=== PATIENT | male | born 1950 | race Caucasian/White ===

== ENCOUNTER 2017-04-13 13:14 | Emergency (ER) | payer MEDICARE ==
[~2017-04-13] VITALS: Ht 177.8 cm; Wt 78.0 kg
[2017-04-13 13:34] VITALS: BP 140/92; PULSE 99; RESP 24; TEMP 98.3; O2SAT 98
[2017-04-13] MEDS ORDERED: LISI10TA3 PO (13:34)
[2017-04-13] MEDS ORDERED: ASPIRIN 81 MG CHEW TAB ONE (13:57)
[2017-04-13 14:01] LABS: AUTOMATED NEUTROPHIL # 5.1 TH/MM3 (1.8-7.7); BASOPHIL # 0.1 TH/MM3 (0-0.2); BASOPHIL % 0.7 % (0.0-2.0); EOSINOPHIL # 0.8 TH/MM3 (0-0.4); EOSINOPHIL % 8.4 % (0.0-4.0); HEMATOCRIT 43.2 % (39.0-51.0); HEMOGLOBIN 14.9 GM/DL (13.0-17.0); LYMPH % 26.6 % (9.0-44.0); LYMPHOCYTE # 2.5 TH/MM3 (1.0-4.8); MEAN CELL VOLUME 93.3 FL (80.0-100.0); MEAN CORPUSCULAR HEMOGLOBIN 32.2 PG (27.0-34.0); MEAN CORPUSCULAR HGB CONC 34.5 % (32.0-36.0); MEAN PLATELET VOLUME 6.8 FL (7.0-11.0); MONO % 9.9 % (0.0-8.0); MONOCYTE # 0.9 TH/MM3 (0-0.9); NEUT % 54.4 % (16.0-70.0); PLATELET COUNT 334 TH/MM3 (150-450); RED BLOOD COUNT 4.63 MIL/MM3 (4.50-5.90); RED CELL DISTRIBUTION WIDTH 13.3 % (11.6-17.2); WHITE BLOOD COUNT 9.4 TH/MM3 (4.0-11.0)
--- NOTE | 2017-04-13 14:02 | RADRPT ---
EXAM DATE/TIME: 04/13/2017 13:38 [facility] COMPARISON: No previous studies available for comparison. INDICATIONS : Possible syncopal episode; possible seizure. MEDICAL HISTORY : Hypertension. SURGICAL HISTORY : None. ENCOUNTER: Initial ACUITY: 1 day PAIN SCORE: 0/10 LOCATION: Bilateral chest FINDINGS: A single view of the chest demonstrates the lungs to be symmetrically aerated without evidence of mas s, infiltrate or effusion. No evidence of pneumothorax. The cardiomediastinal contours are unremark able. Deformity of the lateral left 2nd rib without demonstrable fracture.. CONCLUSION: The lungs are clear. Davis Win MD on April 13, 2017 at 14:00 Board Certified Radiologist. This report was verified electronically.
[2017-04-13] MEDS ORDERED: ASPIRIN 81 MG CHEW TAB CHEW ONE (14:15)
[2017-04-13 14:21] LABS: BICARBONATE 22.1 MEQ/L (21.0-32.0); BLOOD UREA NITROGEN 21 MG/DL (7-18); CALCIUM 8.8 MG/DL (8.5-10.1); CHLORIDE 107 MEQ/L (98-107); CREATININE 1.46 MG/DL (0.60-1.30); GLOMERULAR FILTRATION RATE 48 ML/MIN (>89); GLUCOSE,RANDOM 105 MG/DL (74-106); SODIUM (NA) 140 MEQ/L (136-145); TROPONIN I LESS THAN 0.02 NG/ML (0.02-0.05)
[2017-04-13 15:21] VITALS: BP 187/104; PULSE 102; RESP 18; O2SAT 96
--- NOTE | 2017-04-13 15:32 | PD ---
HPI . Syncope Chief Complaint: Seizure Time Seen by Provider: 15:03 Travel History International Travel<30 days: No Contact w/Intl Traveler<30days: No Traveled to known affect area: No History of Present Illness HPI Patient presents to us following an apparent seizure. He is on vacation from [place]. He has several friends and/or family members who are here with him and who describe the episode. The patient reports that he felt very lightheaded. The next thing that he knew, he was in the back of an ambulance. The bystanders state that they eased him to the ground so he did not hurt himself. They describe tonic-clonic type seizure activity which lasted approximately 5 minutes. They state that he was then very slow to come around to normal. They describe an approximately 10-15 minute postictal period. The patient states that he probably had a seizure some 35 years ago. Other than that, he has no previous similar history. His only underlying medical problem is hypertension. He states that he does not have a headache. He does not have any chest pain or shortness of breath. He did not suffer any injury as result of his fall to the ground. [facility] Past Medical History Cardiovascular Problems: Yes (HTN) Hypertension: Yes Social History Alcohol Use: Yes ("OCCASIONAL") Tobacco Use: No Substance Use: No Allergies-Medications (Allergen,Severity, Reaction): Coded Allergies: No Known Allergies (Unverified , 04/13/17) Reported Meds & Prescriptions Reported Meds & Active Scripts Active Reported Lisinopril 10 Mg Tab 10 Mg PO DAILY Review of Systems Except as stated in HPI: all other systems reviewed are Neg General / Constitutional: No: Fever, Chills Eyes: No: Blurred Vision HENT: Positive: Lightheadedness, No: Headaches Cardiovascular: No: Chest Pain or Discomfort Respiratory: No: Shortness of Breath Gastrointestinal: No: Nausea, Vomiting, Diarrhea Neurologic: Positive: Syncope, No: Focal Abnormalities Physical Exam Narrative GENERAL: Patient is awake and alert. SKIN: warm/dry. Normal color and turgor. HEAD: Normocephalic. Atraumatic. EYES: Pupils equal and round. No scleral icterus. No injection or drainage. ENT: No nasal bleeding or discharge. Mucous membranes pink and moist. NECK: Trachea midline. Full range of motion without pain.. CARDIOVASCULAR: Regular rate and rhythm. Heart sounds normal. RESPIRATORY: No accessory muscle use. Clear to auscultation. Breath sounds equal bilaterally. GASTROINTESTINAL: Abdomen soft. Nontender. Bowel sounds present. Nondistended. MUSCULOSKELETAL: No obvious deformities. NEUROLOGICAL: Awake and alert. No obvious cranial nerve deficits. Motor grossly within normal limits. Normal speech. PSYCHIATRIC: Appropriate mood and affect; insight and judgment normal. Data Data Last Documented VS Vital Signs Date Time Temp Pulse Resp B/P (MAP) Pulse Ox O2 Delivery O2 Flow Rate FiO2 04/13/17 15:55 95 18 175/98 (123) 96 Room Air 04/13/17 13:34 98.3 Orders Orders Blood Glucose (04/13/17 13:30) Oximetry (04/13/17 13:30) Iv Access Insert/Monitor (04/13/17 13:30) Ecg Monitoring (04/13/17 13:30) Oxygen Administration (04/13/17 13:30) Basic Metabolic Panel (Bmp) (04/13/17 13:30) Electrocardiogram (04/13/17 13:30) Complete Blood Count With Diff (04/13/17 13:30) Ckmb (Isoenzyme) Profile (04/13/17 13:30) Troponin I (04/13/17 13:30) Chest, Single Ap (04/13/17 13:30) Alcohol (Ethanol) (04/13/17 13:48) Aspirin Chew (Aspirin Chew) (04/13/17 13:57) Aspirin Chew (Aspirin Chew) (04/13/17 14:15) Ct Brain W/O Iv Contrast(Rout) (04/13/17 15:16) Labs Laboratory Tests Test 04/13/17 13:45 White Blood Count 9.4 TH/MM3 Red Blood Count 4.63 MIL/MM3 Hemoglobin 14.9 GM/DL Hematocrit 43.2 % Mean Corpuscular Volume 93.3 FL Mean Corpuscular Hemoglobin 32.2 PG Mean Corpuscular Hemoglobin Concent 34.5 % Red Cell Distribution Width 13.3 % Platelet Count 334 TH/MM3 Mean Platelet Volume 6.8 FL Neutrophils (%) (Auto) 54.4 % Lymphocytes (%) (Auto) 26.6 % Monocytes (%) (Auto) 9.9 % Eosinophils (%) (Auto) 8.4 % Basophils (%) (Auto) 0.7 % Neutrophils # (Auto) 5.1 TH/MM3 Lymphocytes # (Auto) 2.5 TH/MM3 Monocytes # (Auto) 0.9 TH/MM3 Eosinophils # (Auto) 0.8 TH/MM3 Basophils # (Auto) 0.1 TH/MM3 CBC Comment DIFF FINAL Differential Comment Blood Urea Nitrogen 21 MG/DL Creatinine 1.46 MG/DL Random Glucose 105 MG/DL Calcium Level 8.8 MG/DL Sodium Level 140 MEQ/L Potassium Level 3.9 MEQ/L Chloride Level 107 MEQ/L Carbon Dioxide Level 22.1 MEQ/L Anion Gap 11 MEQ/L Estimat Glomerular Filtration Rate 48 ML/MIN Total Creatine Kinase 99 U/L Troponin I LESS THAN 0.02 NG/ML Ethyl Alcohol Level LESS THAN 3 MG/DL MDM Medical Decision Making Medical Screen Exam Complete: Yes Emergency Medical Condition: Yes Interpretation(s) EKG has a sinus rhythm. He has some minor ST segment elevation in aVR. He has no old EKGs for comparison. Differential Diagnosis My differential diagnosis of syncope includes but is not limited to cardiac arrhythmia, hypovolemia, anemia, neurological catastrophe, vasovagal response Narrative Course This patient presents to us following a syncopal event. It sounds like he had a seizure. CBC & BMP Diagram 04/13/17 13:45 Calcium Level 8.8 Cardiac enzymes are negative. CT head neg. I will discharge him to home with instructions to follow up with his primary care provider when he returns home. This appears to have been an isolated event. He will not be started on medication medication. Diagnosis Primary Impression: Seizure Patient Instructions: General Instructions, New-Onset Seizure in Adults (DC) Additional Instructions: See your doctor when you get home. Your doctor may want to refer you to neurology for an EEG. Disposition: 01 DISCHARGE HOME Condition: Stable Aleksandra Thomas MD Apr 13, 2017 15:32
--- NOTE | 2017-04-13 15:54 | RADRPT ---
EXAM DATE/TIME: 04/13/2017 15:42 [facility] COMPARISON: No previous studies available for comparison. INDICATIONS : Head pain due to seizure, postictal. RADIATION DOSE: 56.35 CTDIvol (mGy) MEDICAL HISTORY : Hypertension. SURGICAL HISTORY : None. ENCOUNTER: Initial ACUITY: 1 day PAIN SCALE: 3/10 LOCATION: Bilateral cranial TECHNIQUE: Multiple contiguous axial images were obtained of the head. Using automated exposure control and adj ustment of the mA and/or kV according to patient size, radiation dose was kept as low as reasonably a chievable to obtain optimal diagnostic quality images. DICOM format image data is available electro nically for review and comparison. FINDINGS: CEREBRUM: The ventricles are normal for age. No evidence of midline shift, mass lesion, hemorrhage or acute in farction. No extra-axial fluid collections are seen. POSTERIOR FOSSA: The cerebellum and brainstem are intact. The 4th ventricle is midline. The cerebellopontine angle i s unremarkable. EXTRACRANIAL: The visualized portion of the orbits is intact. SKULL: The calvaria is intact. No evidence of skull fracture. CONCLUSION: 1. No acute intercranial abnormality identified. Julien Kendall MD on April 13, 2017 at 15:49 Board Certified Radiologist. This report was verified electronically.
[2017-04-13 15:55] VITALS: BP 175/98; PULSE 95; RESP 18; O2SAT 96
--- NOTE | 2017-04-14 13:45 | EKG ---
Date Performed: 04/13/2017 Time Performed: 13:25:31 PTAGE: 66 years EKG: SINUS TACHYCARDIA NONSPECIFIC ST & T-WAVE ABNORMALITY ABNORMAL RHYTHM ECG NO PREVIOUS TRACING 04/13/2017 1325 DOCTOR: Elen Johnson Interpretating Date/Time 04/14/2017 13:43:44
== END 2017-04-13 18:09 | disposition home or self-care (01) ==
LOC: NEPD 13:14
DX: R56.9 Unspecified convulsions (principal); I10 Essential (primary) hypertension
CPT/HCPCS: 70450; 71045; 80048; 80307; 82550; 84484; 85025; 93005; 99285